=== PATIENT | female | born 1985 | race Caucasian/White ===

== ENCOUNTER 2023-07-30 14:59 | Emergency (ER) | payer MEDICARE, MEDICAID ==
[~2023-07-30] VITALS: Ht 165.1 cm; Wt 50.0 kg
[2023-07-30 15:03] VITALS: O2SAT 100
[2023-07-30 15:43] LABS: BASOPHILS % 0.8 % (0.0-2.0); DIFFERENTIAL COMMENT 0; EOSINOPHILS % 2.5 % (0.0-5.0); HEMATOCRIT. 36.4 % (36.0-48.0); HEMOGLOBIN. 12.1 g/dL (12.0-16.0); LYMPHOCYTES % 29.3 % (20.0-50.0); MEAN CORPUSCULAR HEMOGLOBIN 33.3 pg (28.0-32.0); MEAN CORPUSCULAR HGB CONC 33.3 g/dL (31.0-37.0); MEAN CORPUSCULAR VOLUME 100.1 fL (81.0-99.0); MEAN PLATELET VOLUME 9.8 fl (7.4-10.4); MONOCYTES % 14.4 % (2.0-8.0); PLATELET 141 x1000/uL (130-400); RED BLOOD CELL COUNT 3.63 mill/uL (4.2-5.4); RED CELL DISTRIBUTION WIDTH 12.5 % (11.6-14.6); WHITE BLOOD COUNT 3.3 x1000/uL (4.5-11.0)
[2023-07-30 15:45] LABS: CHLORIDE 107 mEq/L (98-107); POTASSIUM 3.6 mEq/L (3.5-5.1); SODIUM 142 mEq/L (136-145)
[2023-07-30 15:46] LABS: CARBON DIOXIDE 30 mEq/L (21-32)
[2023-07-30 15:47] LABS: CALCIUM 9.8 mg/dL (8.7-10.4)
[2023-07-30 15:48] LABS: HCG SCREEN NEGATIVE
[2023-07-30 15:51] LABS: CREATININE 0.6 mg/dL (0.6-1.0)
[2023-07-30 15:52] LABS: GLUCOSE 76 mg/dL (70-105); UREA NITROGEN BLOOD 7 mg/dL (9-23)
[2023-07-30 15:53] LABS: ALANINE AMINOTRANSFERASE < 7 IU/L (10-49); ALBUMIN 4.5 g/dL (3.2-4.8); ASPARTATE AMINOTRANSFERASE 13 IU/L (<34)
[2023-07-30 15:54] LABS: BILIRUBIN DIRECT 0.2 mg/dL (<=3.0); BILIRUBIN TOTAL 0.5 mg/dL (0.1-1.0); PROTEIN TOTAL 6.5 g/dL (6.0-8.3)
[2023-07-30] MEDS: FAMOTIDINE 20MG/2ML VIAL IV STA (16:07)
[2023-07-30] MEDS: MAGNESIUM/ALUMINUM HYDROXIDE/SIMETHICONE 30ML UDC PO STA (16:07)
[2023-07-30 16:13] LABS: CLARITY URINE CLEAR (CLEAR); COLOR URINE YELLOW (YELLOW); GLUCOSE URINE NEGATIVE (NEGATIVE); KETONES URINE NEGATIVE (NEGATIVE); LEUKOCYTE ESTERASE URINE NEGATIVE (NEGATIVE); NITRITE URINE NEGATIVE (NEGATIVE); OCCULT BLOOD URINE TRACE (NEGATIVE); PH URINE 6.5 (4.5-8.0); PROTEIN URINE NEGATIVE (NEGATIVE); SPECIFIC GRAVITY URINE 1.011 (1.005-1.030); UROBILINOGEN URINE 0.2 E.U./dL (0.2-1.0)
[2023-07-30 16:54] LABS: RBC URINE 0-2 /hpf (0-2); SQUAMOUS EPITHELIAL CELL URINE FEW /lpf (RARE/1+); WBC URINE 0-2 /hpf (0-2)
[2023-07-30 16:55] LABS: BACTERIA URINE 1+
[2023-07-30] MEDS ORDERED: FAMO-135 MT (18:01)
[2023-07-30] MEDS ORDERED: MAG-55 MT (18:01)
[2023-07-30 18:12] VITALS: BP 122/82; PULSE 74; RESP 16; TEMP 98
== END 2023-07-30 18:13 | disposition home or self-care (01) ==
LOC: ER 14:59
DX: K21.9 Gastro-esophageal reflux disease without esophagitis (principal); Z88.5 Allergy status to narcotic agent; Z86.59 Personal history of other mental and behavioral disorders
CPT/HCPCS: 99285; 96374; 76705; 80076; 80048; 81003; 84703; 83690; 85025; 36415; J3490

== ENCOUNTER 2023-10-15 23:33 | Emergency (ER) | payer MEDICARE, MEDICAID ==
[~2023-10-15] VITALS: Ht 160 cm; Wt 55.0 kg
[~2023-10-15 23:33] MED LIST: FAMO-135 MT; MAG-55 MT
[2023-10-15 23:53] VITALS: O2SAT 99
[2023-10-16] MEDS ORDERED: BACL-141 MT (00:24)
[2023-10-16] MEDS ORDERED: ACET-2708 MT (00:24)
[2023-10-16] MEDS: ACETAMINOPHEN 325MG TABLET PO ONE (01:23)
[2023-10-16] MEDS: LIDOCAINE 5% PATCH TOP SCH (01:24)
[2023-10-16 04:18] VITALS: BP 99/67; PULSE 72; RESP 16; TEMP 36.66960; O2SAT 99
== END 2023-10-16 04:20 | disposition home or self-care (01) ==
LOC: ER 23:33
DX: S80.01XA Contusion of right knee, initial encounter (principal); M54.50 Low back pain, unspecified; Z88.5 Allergy status to narcotic agent; Z98.890 Other specified postprocedural states; Z86.59 Personal history of other mental and behavioral disorders; V49.9XXA Car occupant (driver) (passenger) injured in unspecified traffic accident, initial encounter; Y93.89 Activity, other specified; Y92.89 Other specified places as the place of occurrence of the external cause; Y99.8 Other external cause status
CPT/HCPCS: 99283; 73560; L1830